=== PATIENT | male | born 1980 | race Caucasian/White ===

== ENCOUNTER 2019-04-10 16:30 | Outpatient (CLI) | payer OTHER ==
[2019-04-25 14:34] LABS: eGFR (Non-African) > 60
[2019-04-25 14:36] LABS: BASOPHILS % 0.5 % (0.0-1.5); NEUTROPHILS # 3.9 # k/uL (1.4-7.7)
== END 2019-04-10 16:35 | disposition home or self-care (01) ==
LOC: LAB 16:30
PROVIDERS: ATTEND Physician Assistant
DX: Z51.81 Encounter for therapeutic drug level monitoring (principal); Z79.899 Other long term (current) drug therapy
CPT/HCPCS: 36415; 80053; 85025; 86704; 86706; 86803; 87340

== ENCOUNTER 2019-08-21 15:44 | Outpatient (CLI) | payer OTHER ==
[2019-08-21 16:21] LABS: BASOPHILS % 0.5 % (0.0-1.5); NEUTROPHILS # 4.5 # k/uL (1.4-7.7)
[2019-08-21 16:36] LABS: eGFR (Non-African) > 60
== END 2019-08-21 15:49 ==
LOC: LAB 15:44
PROVIDERS: ATTEND Physician Assistant
DX: Z79.899 Other long term (current) drug therapy (principal)
CPT/HCPCS: 80053; 82248; 85025